=== PATIENT | male | born 2005 | race Caucasian/White ===

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

== ENCOUNTER 2024-01-20 16:08 | Oncology outpatient (recurring) (ONCR) | payer BC, MEDICAID, SELFPAY ==
[2023-12-31 12:11] LABS: Basophils % 0.4 %; Eosinophils % 0.6 %; Hematocrit 44.4 % (37-53); Lymphocytes # 1.5 10^3/uL (1.5-6.5); Lymphocytes % 28.2 %; Mean Corpuscular Hemoglobin 29.5 pg (27-33); Mean Corpuscular Volume 86.7 fl (82-101); Monocytes # 0.3 10^3/uL (0.2-0.9); Monocytes % 5.8 %; Neutrophils # 3.37 10^3/uL (1.8-8.0); Neutrophils % 64.6 %; Nucleated Red Blood Cells % 0 %; Platelet Count 235 10^3/cmm (157-399); Red Blood Count 5.12 10^6/uL (3.85-5.65); Red Cell Distribution Width 12.4 % (12.1-15.1); White Blood Count 5.21 10^3/uL (4.5-13.0)
[2023-12-31 12:26] LABS: INR 0.99 (0.8-1.2)
[2023-12-31 12:27] LABS: Partial Thromboplastin Time 32.4 SECONDS (23.9-36.7)
[2023-12-31 12:33] LABS: Alanine Aminotransferase 15 U/L (0-41); Albumin Level 4.6 g/dL (3.5-5.2); Alkaline Phosphatase 88 U/L (40-130); Aspartate Amino Transferase 17 U/L (0-40); Blood Urea Nitrogen 9 mg/dL (6-20); Calcium 9.1 mg/dL (8.5-10.5); Carbon Dioxide 27 mmol/L (22-29); Chloride 104 mmol/L (98-107); Ferritin 107 ng/mL (30-400); Globulin 2.8 g/dL (1.3-4.6); Glomerular Filtration Rate 145.3 mL/min (90-130); Glucose 90 mg/dL (65-115); Iron 95 ug/dL (59-158); Osmolality Calculated 286 mOsm/kg (285-295); Percent Saturation 32.8 % (20-50); Sodium 139 mmol/L (136-145); Total Bilirubin 0.5 mg/dL (0.15-1.2); Total Iron Binding Capacity 289 mcg/dl; Total Protein 7.4 g/dL (6.6-8.7); Unsaturated Iron Binding 194 ug/dL (112-347)
[2024-01-24 21:29] LABS: Factor VIII Activity Clotting 35 % normal (50-180)
[2024-01-26 11:50] LABS: Von Willebrand Factor AG 53 % (50-217)
== END 2024-01-26 23:59 | disposition home or self-care (01) ==
PROVIDERS: Internal Medicine; PCP Nurse Practitioner Family; Visit Provider Internal Medicine Medical Oncology
DX: R04.0 Epistaxis (principal); Z53.9 Procedure and treatment not carried out, unspecified reason
CPT/HCPCS: 36415; 80053; 82728; 83540; 83550; 85025; 85240; 85245; 85246; 85247; 85610; 85730

== ENCOUNTER 2024-02-11 10:39 | Oncology outpatient (recurring) (ONCR) | payer BC, MEDICAID, SELFPAY ==
[2024-02-11 10:56] LABS: Basophils % 0.5 %; Eosinophils # 0.1 10^3/uL (0.0-0.8); Eosinophils % 1.4 %; Lymphocytes # 1.9 10^3/uL (1.5-6.5); Mean Corpuscular HGB Conc 34.1 g/dL (30-55); Mean Corpuscular Hemoglobin 29.8 pg (27-33); Mean Corpuscular Volume 87.5 fl (82-101); Mean Platelet Volume 9.9 fL (7.4-10.4); Monocytes # 0.5 10^3/uL (0.2-0.9); Monocytes % 7.9 %; Neutrophils # 3.74 10^3/uL (1.8-8.0); Neutrophils % 59.6 %; Nucleated Red Blood Cells % 0 %; Platelet Count 228 10^3/cmm (157-399); Red Blood Count 5.26 10^6/uL (3.85-5.65); Red Cell Distribution Width 12.1 % (12.1-15.1); White Blood Count 6.29 10^3/uL (4.5-13.0)
[2024-02-11 11:10] LABS: Alanine Aminotransferase 16 U/L (0-41); Albumin Level 4.7 g/dL (3.5-5.2); Alkaline Phosphatase 96 U/L (40-130); Aspartate Amino Transferase 18 U/L (0-40); Blood Urea Nitrogen 10 mg/dL (6-20); Calcium 9.8 mg/dL (8.5-10.5); Carbon Dioxide 27 mmol/L (22-29); Chloride 101 mmol/L (98-107); Globulin 2.9 g/dL (1.3-4.6); Glomerular Filtration Rate 108.7 mL/min (90-130); Glucose 84 mg/dL (65-115); Osmolality Calculated 286 mOsm/kg (285-295); Sodium 139 mmol/L (136-145); Total Bilirubin 0.6 mg/dL (0.15-1.2); Total Protein 7.6 g/dL (6.6-8.7)
== END 2024-02-26 23:59 | disposition home or self-care (01) ==
PROVIDERS: PCP Nurse Practitioner Family; Visit Provider Internal Medicine Medical Oncology
DX: R04.0 Epistaxis (principal)
CPT/HCPCS: 36415; 80053; 85025

== ENCOUNTER 2024-03-11 16:18 | Oncology outpatient (recurring) (ONCR) | payer BC, MEDICAID, SELFPAY ==
[2024-03-11 16:54] LABS: Basophils % 0.4 %; Eosinophils # 0.1 10^3/uL (0.0-0.8); Eosinophils % 0.8 %; Hematocrit 43.3 % (37-53); Lymphocytes # 1.9 10^3/uL (1.5-6.5); Lymphocytes % 27.3 %; Mean Corpuscular HGB Conc 35.1 g/dL (30-55); Mean Corpuscular Hemoglobin 30.4 pg (27-33); Mean Corpuscular Volume 86.6 fl (82-101); Mean Platelet Volume 9.8 fL (7.4-10.4); Monocytes # 0.5 10^3/uL (0.2-0.9); Monocytes % 7.3 %; Neutrophils # 4.51 10^3/uL (1.8-8.0); Neutrophils % 63.8 %; Nucleated Red Blood Cells % 0 %; Platelet Count 243 10^3/cmm (157-399); Red Cell Distribution Width 11.8 % (12.1-15.1); White Blood Count 7.08 10^3/uL (4.5-13.0)
[2024-03-11 17:01] LABS: Partial Thromboplastin Time 33.3 SECONDS (23.9-36.7)
[2024-03-18 12:55] LABS: Factor VIII Activity Clotting 33 % normal (50-180)
[2024-03-18 13:14] LABS: Von Willebrand Factor AG 41 % (50-217); Von Willebrand Ristocetin(Rcf) 35 % normal (42-200)
== END 2024-03-28 23:59 | disposition home or self-care (01) ==
PROVIDERS: PCP Nurse Practitioner Family; Visit Provider Internal Medicine Medical Oncology
DX: R04.0 Epistaxis (principal)
CPT/HCPCS: 36415; 85025; 85240; 85245; 85246; 85730